=== PATIENT | female | born 2000 | race Caucasian/White ===

== ENCOUNTER 2018-04-14 04:23 | Emergency (ER) | payer MEDICAID ==
--- NOTE | 2018-04-14 04:55 | EDM.PDOC ---
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 Patient is a A1 female that recently had a 10 week spontaneous of twins. States that last evening she began to have vaginal bleeding which she describes as a "heavy period" amount of blood. She did have some associated lightheadedness and dizziness. States that this was her first . She denies any pain with the bleeding. She did see Alyse Thomas NP at [facility] and has a follow-up appointment with her on Sunday for further assessment post spontaneous . Initial examination patient is tearful and anxious. Stating that she is on a waste her time but when to make sure that she was okay because she wants to have "more babies". Review of systems: As per history of present illness and below otherwise all systems reviewed and negative. Past medical history: As per history of present illness and as reviewed below otherwise noncontributory. Surgical history: As per history of present illness and as reviewed below otherwise noncontributory. Social history: No reported history of drug or alcohol abuse. Family history: As per history of present illness and as reviewed below otherwise noncontributory. Physical exam: HEENT: Atraumatic, normocephalic, pupils reactive, negative for conjunctival pallor or scleral icterus, mucous membranes moist, throat clear, neck supple, nontender, trachea midline. Lungs: Clear to auscultation, breath sounds equal bilaterally, chest nontender. Heart: S1S2, regular, negative for clicks, rubs, or JVD. Abdomen: Soft, nondistended, nontender. Negative for masses or hepatosplenomegaly. Negative for costovertebral tenderness. Pelvis: Stable nontender. Genitourinary: Deferred. Rectal: Deferred. Extremities: Atraumatic, negative for cords or calf pain. Neurovascular unremarkable. Neuro: Awake, alert, oriented. Cranial nerves II through XII unremarkable. Cerebellum unremarkable. Motor and sensory unremarkable throughout. Exam nonfocal. Diagnostics: CBC, BMP, Rh Therapeutics: 1 L normal saline, 1 mg Ativan IV 1 Impression: Spontaneous Plan: CBC was unremarkable with normal hemoglobin levels. BMP did show some hypokalemia and patient was given Klor-Con 40 mEq by mouth. Rh was positive and hCG Quant was 2030 which was down from 7755 on 04/12/18. This was all explained to the patient and significant other. She was discharged in good condition with instructions to follow with her scheduled appointment tomorrow morning with Alyse Thomas. Also instructed them to return the emergency department if there are any new or worsening symptoms. Definitive disposition and diagnosis as appropriate pending reevaluation and review of above. abdomen Pain Score (Numeric/FACES): 10 - Related Data Allergies Allergy/AdvReac Type Severity Reaction Status Date / Time No Known Allergies Allergy Verified 04/14/18 04:35 Home Meds: Home Meds . 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 ED EXAM, GENERAL - Physical Exam Exam: See Below Course - Vital Signs Last Recorded V/S: Last Vital Signs Temp 97.8 F 04/14/18 06:41 Pulse 87 04/14/18 06:41 Resp 18 04/14/18 06:41 BP 111/62 04/14/18 06:41 Pulse Ox 98 04/14/18 06:41 - Orders/Labs/Meds Labs: Laboratory Tests 04/14/18 04/14/18 04/14/18 Range/Units 04:45 04:45 04:45 WBC 8.74 (4.0-11.0) K/uL RBC 4.41 (4.30-5.90) M/uL Hgb 13.8 (12.0-16.0) g/dL Hct 39.0 (36.0-46.0) % MCV 88.4 (80.0-98.0) fL MCH 31.3 (27.0-32.0) pg MCHC 35.4 (31.0-37.0) g/dL RDW Std Deviation 38.8 (28.0-62.0) fl RDW Coeff of Abbey 12 (11.0-15.0) % Plt Count 210 (150-400) K/uL MPV 9.40 (7.40-12.00) fL Neut % (Auto) 77.5 (48.0-80.0) % Lymph % (Auto) 14.8 L (16.0-40.0) % [place] % (Auto) 7.3 (0.0-15.0) % Eos % (Auto) 0.2 (0.0-7.0) % Baso % (Auto) 0.2 (0.0-1.5) % Neut # (Auto) 6.8 H (1.4-5.7) K/uL Lymph # (Auto) 1.3 (0.6-2.4) K/uL [place] # (Auto) 0.6 (0.0-0.8) K/uL Eos # (Auto) 0.0 (0.0-0.7) K/uL Baso # (Auto) 0.0 (0.0-0.1) K/uL Nucleated RBC % 0.0 /100WBC Nucleated RBCs # 0 K/uL Sodium 139 (136-145) mmol/L Potassium 2.9 L (3.5-5.1) mmol/L Chloride 104 (98-107) mmol/L Carbon Dioxide 23.4 (21.0-32.0) mmol/L BUN 13 (7.0-18.0) mg/dL Creatinine 0.9 (0.6-1.0) mg/dL Est Cr Clr Drug Dosing 89.72 mL/min Estimated GFR (MDRD) > 60.0 ml/min Glucose 145 H (74-106) mg/dL Calcium 8.9 (8.5-10.1) mg/dL HCG, Quant mIU/mL Blood Type B POSITIVE 04/14/18 Range/Units 04:45 WBC (4.0-11.0) K/uL RBC (4.30-5.90) M/uL Hgb (12.0-16.0) g/dL Hct (36.0-46.0) % MCV (80.0-98.0) fL MCH (27.0-32.0) pg MCHC (31.0-37.0) g/dL RDW Std Deviation (28.0-62.0) fl RDW Coeff of Abbey (11.0-15.0) % Plt Count (150-400) K/uL MPV (7.40-12.00) fL Neut % (Auto) (48.0-80.0) % Lymph % (Auto) (16.0-40.0) % [place] % (Auto) (0.0-15.0) % Eos % (Auto) (0.0-7.0) % Baso % (Auto) (0.0-1.5) % Neut # (Auto) (1.4-5.7) K/uL Lymph # (Auto) (0.6-2.4) K/uL [place] # (Auto) (0.0-0.8) K/uL Eos # (Auto) (0.0-0.7) K/uL Baso # (Auto) (0.0-0.1) K/uL Nucleated RBC % /100WBC Nucleated RBCs # K/uL Sodium (136-145) mmol/L Potassium (3.5-5.1) mmol/L Chloride (98-107) mmol/L Carbon Dioxide (21.0-32.0) mmol/L BUN (7.0-18.0) mg/dL Creatinine (0.6-1.0) mg/dL Est Cr Clr Drug Dosing mL/min Estimated GFR (MDRD) ml/min Glucose (74-106) mg/dL Calcium (8.5-10.1) mg/dL HCG, Quant 2030.0 mIU/mL Blood Type Meds: Medications Discontinued Medications Generic Name Dose Route Start Last Admin Trade Name Freq PRN Reason Stop Dose Admin Sodium Chloride 1,000 mls @ 999 mls/hr 04/14/18 05:08 04/14/18 05:47 Normal Saline IV 04/14/18 06:08 999 mls/hr STAT ONE Administration Lorazepam 1 mg 04/14/18 05:08 04/14/18 05:47 Ativan IVPUSH 04/14/18 05:09 1 mg ONETIME ONE Administration Potassium Chloride 40 meq 04/14/18 06:26 04/14/18 06:42 Klor-Con M20 PO 04/14/18 06:27 40 meq ONETIME ONE Administration Departure - Departure Time of Disposition: 07:25 Disposition: Home, Self-Care 01 Condition: Good Clinical Impression: Spontaneous - Discharge Information Referrals: PCP,None [Primary Care Provider] - Forms: ED Department Discharge Additional Instructions: My general discharge The following information is given to patients seen in the emergency department who are being discharged to home. This information is to outline your options for follow-up care. We provide all patients seen in our emergency department with a follow-up referral. The need for follow-up, as well as the timing and circumstances, are variable depending upon the specifics of your emergency department visit. If you don't have a primary care physician on staff, we will provide you with a referral. We always advise you to contact your personal physician following an emergency department visit to inform them of the circumstance of the visit and for follow-up with them and/or the need for any referrals to a consulting specialist. The emergency department will also refer you to a specialist when appropriate. This referral assures that you have the opportunity for follow-up care with a specialist. All of these measure are taken in an effort to provide you with optimal care, which includes your follow-up. Under all circumstances we always encourage you to contact your private physician who remains a resource for coordinating your care. When calling for follow-up care, please make the office aware that this follow-up is from your recent emergency room visit. If for any reason you are refused follow-up, please contact the [facility] Emergency Department at and asked to speak to the emergency department charge nurse. [facility] [address] [place] [id number] Please follow-up with Alyse Thomas as scheduled Sunday morning. Return to emergency department if any new or worsening symptoms.
[2018-04-14] MEDS ORDERED: Sodium Chloride 0.9% 1,000 ML IV ONE (05:08)
[2018-04-14] MEDS ORDERED: LORazepam 2 MG/ML SDV IVPUSH ONE (05:08)
[2018-04-14 06:16] LABS: CHLORIDE,CL 104 mmol/L (98-107); SODIUM,NA 139 mmol/L (136-145)
[2018-04-14] MEDS ORDERED: Potassium Chloride 20 MEQ Tab.ER PO ONE (06:26)
== END 2018-04-14 08:00 | disposition home or self-care (01) ==
LOC: MW.ED 04:23
DX: O03.9 Complete or unspecified spontaneous abortion without complication (principal)
CPT/HCPCS: 80048; 84702; 85025; 86900; 86901; 96361; 96374; 99284; A9270; J2060; J7040; 99283

== ENCOUNTER 2020-06-09 08:41 | Inpatient (IN) | payer BC ==
[2020-06-09] MEDS ORDERED: Carboprost Tromethamine 250 MCG/1 ML Amp IM PRN (11:16)
[2020-06-09] MEDS ORDERED: Misoprostol 200 MCG Tab PO PRN (11:16)
[2020-06-09] MEDS ORDERED: Lidocaine 1% 50 ML MDV INJECT PRN (11:16)
[2020-06-09] MEDS ORDERED: Methylergonovine 0.2 MG/1 ML Amp IM PRN (11:16)
[2020-06-09] MEDS ORDERED: Nalbuphine 10 MG/1 ML Vial IVPUSH PRN (11:16)
[2020-06-09] MEDS ORDERED: Water For Irrigation,Sterile 1,000 ML Container IRR PRN (11:16)
[2020-06-09] MEDS ORDERED: Butorphanol 1 MG/ML SDV IVPUSH PRN (11:16)
[2020-06-09] MEDS ORDERED: Sodium Chloride 0.9% 10 ML Syringe FLUSH PRN (11:16)
[2020-06-09] MEDS ORDERED: Tranexamic Acid 1,000 MG in Sodium Chloride 0.9% 100 ML IV PRN (11:16)
[2020-06-09] MEDS ORDERED: Sodium Chloride 0.9% 2.5 ML Syringe FLUSH PRN (11:16)
[2020-06-09] MEDS ORDERED: Sodium Chloride 0.9% 10 ML SDV IV PRN (11:16)
[2020-06-09] MEDS ORDERED: Lactated Ringers 1,000 ML IV SCH (11:30)
[2020-06-09] MEDS ORDERED: Oxytocin/0.9 % Sodium Chloride 30 UNIT/500 ML BAG IV SCH (11:30)
--- NOTE | 2020-06-09 13:37 | PCM.LDHP ---
L&D History of Present Illness - General Date of Service: 06/09/20 Admit Problem/Dx: Patient Status Order with Admit Dx/Problem 06/09/20 09:06 Patient Status [ADT] Routine 06/09/20 11:17 Patient Status [ADT] Routine Admission Diagnosis/Problem Admission Diagnosis/Problem 06/09/20 13:09 Ryan is a 20 yo at 40.2 weeks gestation (KEILA 06[birth year]07/2020) that presents today with C/O moderate contractions every 5-7 min lasting ~1 min since 0030 AM today. B pos, RNI, GBS neg. symptomatic COVID pos 1 day ago, patient tested for COVID in clinic yesterday, results pending. Not advised to utilize rapid test, patient placed on COVID precautions until test results are returned due to close exposure with sympomatic COVID pos case (). Denies LOF, vaginal bleeding; reports adequate movement. Patient has no complaints or concerns at this time, well-appearing, no symptoms. Source of Information: Patient History Limitations: Reports: No Limitations - Related Data Allergies/Adverse Reactions: Allergies Allergy/AdvReac Type Severity Reaction Status Date / Time No Known Allergies Allergy Verified 06/09/20 09:05 Home Medications: Home Meds Pnv,Calcium 72/Iron/Folic Acid [Pnv Plus Multivit Tab] 1 each PO 06/09/20 [History] Past Medical History - Past Health History Medical/Surgical History: Denies Medical/Surgical History HEENT History: Reports: None Cardiovascular History: Reports: None Respiratory History: Reports: None Gastrointestinal History: Reports: None Genitourinary History: Reports: None 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: , Spontaneous (Twins (2018)) : 2 Para: 0 LMP (Approximate): Musculoskeletal History: Reports: None Neurological History: Reports: None Psychiatric History: Reports: None Endocrine/Metabolic History: Reports: None Hematologic History: Reports: None Immunologic History: Reports: None Oncologic (Cancer) History: Reports: None Dermatologic History: Reports: None - Infectious Disease History Infectious Disease History: Reports: None Social & Family History - Family History Family Medical History: Noncontributory - Tobacco Use Smoking Status *Q: Never Smoker - Caffeine Use Caffeine Use: Reports: None - Alcohol Use Alcohol Use History: No - Recreational Drug Use Recreational Drug Use: No - Sexual History Sexual History: Reports: None H&P Review of Systems - Review of Systems: Review Of Systems: Comprehensive ROS is negative, except as noted in HPI. General: Reports: No Symptoms HEENT: Reports: No Symptoms Pulmonary: Reports: No Symptoms Cardiovascular: Reports: No Symptoms Gastrointestinal: Reports: No Symptoms Genitourinary: Reports: No Symptoms Musculoskeletal: Reports: No Symptoms Skin: Reports: No Symptoms Psychiatric: Reports: No Symptoms Neurological: Reports: No Symptoms Hematologic/Lymphatic: Reports: No Symptoms Immunologic: Reports: No Symptoms L&D Exam - Exam Exam: Not Obtained - Vital Signs Vital Signs: Hemodynamically stable, afebrile. Weight: 178 lb - OB Specific Fundal Height In cm: 40 Contraction Duration (sec): 2-6 Contraction Frequency (min): 60-80 Contraction Intensity: Moderate Movement: Active Heart Tones: Present Heart Tones per Min: 140 Heart Rate (FHR) Variability: Moderate (6-25 bmp) Presentation: Vertex - Exam General: Alert, Oriented, Cooperative HEENT: Conjunctiva Clear, Hearing Intact, Mucosa Moist & [place], PERRLA Neck: Supple, Trachea Midline Lungs: Clear to Auscultation, Normal Respiratory Effort Cardiovascular: Regular Rate, Regular Rhythm GI/Abdominal Exam: Normal Bowel Sounds, Soft, Non-Tender, No Organomegaly, No Distention Rectal Exam: Deferred Genitourinary: Normal external exam, Normal bimanual exam, Enlarged uterus (Gravid uterus) Back Exam: Normal Inspection, Full Range of Motion Extremities: Normal Inspection, Normal Range of Motion, Non-Tender, No Pedal Edema, Normal Capillary Refill Skin: Warm, Dry, Intact Neurological: Cranial Nerves Intact, Reflexes Equal Bilateral Psychiatric: Alert, Normal Affect, Normal Mood - Patient Data Lab Results Last 24 hrs: Laboratory Results - last 24 hr 06/09/20 Range/Units 11:30 WBC 12.27 H (4.0-11.0) K/uL RBC 4.53 (4.30-5.90) M/uL Hgb 14.2 (12.0-16.0) g/dL Hct 41.6 (36.0-46.0) % MCV 91.8 (80.0-98.0) fL MCH 31.3 (27.0-32.0) pg MCHC 34.1 (31.0-37.0) g/dL RDW Std Deviation 42.0 (28.0-62.0) fl RDW Coeff of Abbey 13 (11.0-15.0) % Plt Count 217 (150-400) K/uL MPV 10.10 (7.40-12.00) fL Nucleated RBC % 0.0 /100WBC Nucleated RBCs # 0 K/uL Result Diagrams: 06/09/20 11:30 - Problem List (1) Uterine contractions SNOMED Code(s): 632011945 ICD Code: BWS0580 - Status: Acute Priority: High Current Visit: Yes (2) 40 weeks gestation of SNOMED Code(s): 34025841 ICD Code: Z3A.40 - 40 WEEKS GESTATION OF Status: Acute Priority: High Current Visit: Yes Problem List Initiated/Reviewed/Updated: Yes Orders Last 24hrs: Active Orders 24 hr Category Date Time Status Patient Status [ADT] Routine ADT 06/09/20 11:17 Active Heart Tones [RC] CONTINUOUS Care 06/09/20 11:17 Active Non Stress Test [RC] PER UNIT ROUTINE Care 06/09/20 09:06 Active Non Stress Test [RC] PER UNIT ROUTINE Care 06/09/20 11:17 Active May Shower [RC] ASDIRECTED Care 06/09/20 11:17 Active Notify Provider [RC] PRN Care 06/09/20 11:17 Active Up ad Jennifer [RC] ASDIRECTED Care 06/09/20 09:06 Active Up ad Jennifer [RC] ASDIRECTED Care 06/09/20 11:17 Active Vaginal Exam [RC] Click to Edit Care 06/09/20 09:06 Active Vaginal Exam [RC] PRN Care 06/09/20 11:17 Active Vital Signs [RC] PER UNIT ROUTINE Care 06/09/20 09:06 Active Vital Signs [RC] PER UNIT ROUTINE Care 06/09/20 11:17 Active CORONAVIRUS COVID-19 PCR [facility] Urgent Lab 06/09/20 11:17 Ordered RPR (SYPHILIS SERO) W/ RFLX [REF] Routine Lab 06/09/20 11:30 Received TYPE AND SCREEN [BBK] Routine Lab 06/09/20 11:30 Received Butorphanol [Stadol] Med 06/09/20 11:16 Active 1 mg IVPUSH Q1H PRN Carboprost Tromethamine [Hemabate DS] Med 06/09/20 11:16 Active 250 mcg IM ASDIRECTED PRN Lactated Ringers [Ringers, Lactated] 1,000 ml Med 06/09/20 11:30 Active IV ASDIRECTED Lidocaine 1% [Xylocaine 1%] Med 06/09/20 11:16 Active 50 ml INJECT ONETIME PRN Methylergonovine [Methergine] Med 06/09/20 11:16 Active 0.2 mg IM ASDIRECTED PRN Nalbuphine [Nubain] Med 06/09/20 11:16 Active 10 mg IVPUSH Q1H PRN Oxytocin/0.9 % Sodium Chloride [Oxytocin 30 Unit/500 ML Med 06/09/20 11:30 Active -NS] 30 unit in 500 ml IV TITRATE Sodium Chloride 0.9% [Normal Saline] Med 06/09/20 11:16 Active 10 ml IV ASDIRECTED PRN Sodium Chloride 0.9% [Saline Flush] Med 06/09/20 11:16 Active 10 ml FLUSH ASDIRECTED PRN Sodium Chloride 0.9% [Saline Flush] Med 06/09/20 11:16 Active 2.5 ml FLUSH ASDIRECTED PRN Tranexamic Acid [Cyklokapron] 1,000 mg Med 06/09/20 11:16 Active Sodium Chloride 0.9% [Normal Saline] 100 ml IV ONETIME Water For Irrigation,Sterile [Sterile Water for Med 06/09/20 11:16 Active Irrigation] 1,000 ml IRR ASDIRECTED PRN miSOPROStoL [Cytotec] Med 06/09/20 11:16 Active 200 mcg PO ONETIME PRN Scalp Electrode [WOMSER] Per Unit Routine Oth 06/09/20 11:17 Ordered Peripheral IV Insertion Adult [OM.PC] Routine Oth 06/09/20 11:17 Ordered Resuscitation Status Routine Resus Stat 06/09/20 09:06 Ordered Medication Orders Butorphanol Tartrate (Stadol) 1 mg IVPUSH Q1H PRN PRN Reason: Pain Carboprost Tromethamine (Hemabate Ds) 250 mcg IM ASDIRECTED PRN PRN Reason: Post Hemorrhage Lactated Ringer's (Ringers, Lactated) 1,000 mls @ 150 mls/hr IV ASDIRECTED CLARE Oxytocin/Sodium Chloride (Oxytocin 30 Unit/500 Ml-Ns) 30 unit in 500 mls @ 999 mls/hr IV TITRATE CLARE Tranexamic Acid 1,000 mg/ (Sodium Chloride) 110 mls @ 660 mls/hr IV ONETIME PRN PRN Reason: Bleeding Lidocaine HCl (Xylocaine 1%) 50 ml INJECT ONETIME PRN PRN Reason: Laceration repair Methylergonovine Maleate (Methergine) 0.2 mg IM ASDIRECTED PRN PRN Reason: Post Hemorrhage Misoprostol (Cytotec) 200 mcg PO ONETIME PRN PRN Reason: Post Hemorrhage Nalbuphine HCl (Nubain) 10 mg IVPUSH Q1H PRN PRN Reason: Pain (severe 7-10) Sodium Chloride (Saline Flush) 10 ml FLUSH ASDIRECTED PRN PRN Reason: Keep Vein Open Sodium Chloride (Saline Flush) 2.5 ml FLUSH ASDIRECTED PRN PRN Reason: Keep Vein Open Sodium Chloride (Normal Saline) 10 ml IV ASDIRECTED PRN PRN Reason: IV Use Sterile Water (Sterile Water For Irrigation) 1,000 ml IRR ASDIRECTED PRN PRN Reason: delivery Assessment/Plan Comment:: Admit to L&D for observation in anticipation of to term, viable . COVID testing completed 1 day ago, pending. May receive epidural if desired between 5-6 cm. Declines AROM at this time. See new orders. Dr. De La Paz notified and agreeable with POC.
[2020-06-09] MEDS ORDERED: Lidocaine 1% 50 ML MDV ONE (22:37)
[2020-06-09] MEDS ORDERED: oxyCODONE 5 MG Tab PO PRN (22:54)
[2020-06-09] MEDS ORDERED: Bisacodyl 10 MG Supp RECTAL PRN (22:54)
[2020-06-09] MEDS ORDERED: Measles, Mumps & Rubella Vaccine 0.5 ML SDV SUBCUT ONE (22:54)
[2020-06-09] MEDS ORDERED: Ibuprofen 400 MG Tab PO PRN (22:54)
[2020-06-09] MEDS ORDERED: Acetaminophen 500 MG Tab PO PRN ×2 (22:54)
[2020-06-09] MEDS ORDERED: Lanolin 100% Cream 7 GM Tube TOP PRN (22:54)
[2020-06-09] MEDS ORDERED: Docusate Sodium 100 MG Cap PO PRN (22:54)
[2020-06-09] MEDS ORDERED: Benzocaine/Menthol 20%-0.5% Spray 78 GM Cannister TOP PRN (22:54)
--- NOTE | 2020-06-09 23:04 | PCM.DEL ---
L & D Note - General Info Date of Service: 06/09/20 Mother's Due Date: 06/07/20 - Delivery Note Labor: Spontaneous, Augmented by ARM Delivery Outcome: Livebirth Delivery Method: Spontaneous Vaginal Delivery-Single Infant Delivery Mode: Spontaneous Presentation: Vertex Nuchal Cord: None Anesthesia Type: None Episiotomy Type: None Laceration: Periurethral (Bilateral periurethral skin tears, scant oozing, not repaired.) Placenta: Intact, Spontaneous Cord: 3 Vessels Estimated Blood Loss: 400 Resuscitation Needed: No : Stimulated, Warmed, [place] Used Score 1 min: 8 Score 5 min: 9 Second Stage Interventions: Reports: Encouragement Given, Pushing, Reverse Squat, Pushing Effectively, Pushing, Squat Bar Pulling on Device Delivery Comments (Free Text/Narrative):: Ryan is a 20 yo S/P to term viable NBF with spontaneous cries with warm, dry, stimulation. FOB COVID pos, maternal COVID testing completed 1 day ago and pending. FOB present on video chat. Patient wearing facial mask silvia ropriately during labor and immediately follow . NBF delivered GEETHA with body following, placed to maternal abdomen. Umbilical cord left intact until placenta delivered, <10 min S/P NBF. Umbilical cord clamped x 2, cut by CNM. Bilateral periurethral skin tears noted, scant oozing, not repaired. Uterus firm U-1. Scant rubra lochia. Mother and resting comfortably skin to skin. - General Info Date of Service: 06/09/20 Admission Dx/Problem (Free Text): Patient Status Order with Admit Dx/Problem 06/09/20 09:06 Patient Status [ADT] Routine 06/09/20 11:17 Patient Status [ADT] Routine Admission Diagnosis/Problem Admission Diagnosis/Problem 06/09/20 13:09 Ryan is a 20 yo at 40.2 weeks gestation (KEILA 06/07/2020) that presents today with C/O moderate contractions every 5-7 min lasting ~1 min since 0030 AM today. B pos, RNI, GBS neg. symptomatic COVID pos 1 day ago, patient tested for COVID in clinic yesterday, results pending. Not advised to utilize rapid test, patient placed on COVID precautions until test results are returned due to close exposure with sympomatic COVID pos case (). Denies LOF, vaginal bleeding; reports adequate movement. Patient has no complaints or concerns at this time, well-appearing, no symptoms. Functional Status: Reports: Pain Controlled - Review of Systems General: Reports: No Symptoms HEENT: Reports: No Symptoms Pulmonary: Reports: No Symptoms Cardiovascular: Reports: No Symptoms Gastrointestinal: Reports: No Symptoms Genitourinary: Reports: No Symptoms Musculoskeletal: Reports: No Symptoms Skin: Reports: No Symptoms Neurological: Reports: No Symptoms Psychiatric: Reports: No Symptoms - Patient Data Vitals - Most Recent: Hemodynamically stable, afebrile, asymptomatic. Weight - Most Recent: 178 lb Lab Results Last 24 Hours: Laboratory Results - last 24 hr 06/09/20 06/09/20 Range/Units 11:30 11:30 WBC 12.27 H (4.0-11.0) K/uL RBC 4.53 (4.30-5.90) M/uL Hgb 14.2 (12.0-16.0) g/dL Hct 41.6 (36.0-46.0) % MCV 91.8 (80.0-98.0) fL MCH 31.3 (27.0-32.0) pg MCHC 34.1 (31.0-37.0) g/dL RDW Std Deviation 42.0 (28.0-62.0) fl RDW Coeff of Abbey 13 (11.0-15.0) % Plt Count 217 (150-400) K/uL MPV 10.10 (7.40-12.00) fL Nucleated RBC % 0.0 /100WBC Nucleated RBCs # 0 K/uL Blood Type B POSITIVE Antibody Screen NEGATIVE Med Orders - Current: Current Medications Discontinued Medications Butorphanol Tartrate (Stadol) 1 mg IVPUSH Q1H PRN PRN Reason: Pain Last Admin: 06/09/20 20:30 Dose: 1 mg Documented by: Carboprost Tromethamine (Hemabate Ds) 250 mcg IM ASDIRECTED PRN PRN Reason: Post Hemorrhage Lactated Ringer's (Ringers, Lactated) 1,000 mls @ 150 mls/hr IV ASDIRECTED [facility] Oxytocin/Sodium Chloride (Oxytocin 30 Unit/500 Ml-Ns) 30 unit in 500 mls @ 999 mls/hr IV TITRATE [facility] Tranexamic Acid 1,000 mg/ (Sodium Chloride) 110 mls @ 660 mls/hr IV ONETIME PRN PRN Reason: Bleeding Lidocaine HCl (Xylocaine 1%) 50 ml INJECT ONETIME PRN PRN Reason: Laceration repair Lidocaine HCl (Xylocaine 1%) Confirm Administered Dose 50 ml .ROUTE .STK-MED ONE Stop: 06/09/20 22:38 Methylergonovine Maleate (Methergine) 0.2 mg IM ASDIRECTED PRN PRN Reason: Post Hemorrhage Misoprostol (Cytotec) 200 mcg PO ONETIME PRN PRN Reason: Post Hemorrhage Nalbuphine HCl (Nubain) 10 mg IVPUSH Q1H PRN PRN Reason: Pain (severe 7-10) Sodium Chloride (Saline Flush) 10 ml FLUSH ASDIRECTED PRN PRN Reason: Keep Vein Open Sodium Chloride (Saline Flush) 2.5 ml FLUSH ASDIRECTED PRN PRN Reason: Keep Vein Open Sodium Chloride (Normal Saline) 10 ml IV ASDIRECTED PRN PRN Reason: IV Use Sterile Water (Sterile Water For Irrigation) 1,000 ml IRR ASDIRECTED PRN PRN Reason: delivery - Exam General: Alert, Oriented, Cooperative, No Acute Distress HEENT: Pupils Equal, Pupils Reactive, Mucous Membr. Moist/[place] Neck: Supple Lungs: Clear to Auscultation, Normal Respiratory Effort Cardiovascular: Regular Rate, Regular Rhythm GI/Abdominal Exam: Normal Bowel Sounds, Soft, Non-Tender, No Organomegaly, No Distention (Female) Exam: Normal External Exam, Enlarged Uterus ( uterus, firm U-1), Vaginal Bleeding (Scant to small rubra lochia) Back Exam: Normal Inspection, Full Range of Motion Extremities: Normal Inspection, Normal Range of Motion, Non-Tender, No Pedal Edema, Normal Capillary Refill Skin: Warm, Dry, Intact Wound/Incisions: No Drainage (Vulva edematous. Bilateral periurethral skin tears hemostatic with pressure shortly after .) Neurological: No New Focal Deficit Psy/Mental Status: Alert, Normal Affect, Normal Mood - Problem List & Annotations (1) (spontaneous vaginal delivery) SNOMED Code(s): 257540767 Code(s): O80 - ENCOUNTER FOR FULL-TERM UNCOMPLICATED DELIVERY Status: Acute Priority: High Current Visit: Yes (2) Lactating mother SNOMED Code(s): 141498011, 990878411 Code(s): Z39.1 - ENCOUNTER FOR CARE AND EXAMINATION OF LACTATING MOTHER Status: Acute Priority: High Current Visit: Yes - Problem List Review Problem List Initiated/Reviewed/Updated: Yes - My Orders Last 24 Hours: My Active Orders 06/09/20 11:30 RPR (SYPHILIS SERO) W/ RFLX [REF] Routine 06/09/20 Dinner Regular Diet [DIET] 06/09/20 22:54 Patient Status [ADT] Routine January Shower [RC] ASDIRECTED Up ad Jennifer [RC] ASDIRECTED Vital Signs [RC] PER UNIT ROUTINE Acetaminophen [Tylenol Extra Strength] 1,000 mg PO Q4H PRN Acetaminophen [Tylenol Extra Strength] 500 mg PO Q4H PRN Benzocaine/Menthol [Dermoplast Pain Relief 20%-0.5% [place]] 78 gm TOP ASDIRECTED PRN Docusate Sodium [Colace] 100 mg PO BID PRN Ibuprofen [Motrin] 400 mg PO Q4H PRN Ibuprofen [Motrin] 800 mg PO Q6H PRN Lanolin [Lansinoh HPA] See Dose Instructions TOP ASDIRECTED PRN Measles, Mumps & Rubella [M-M-R II Vaccine] 0.5 ml SUBCUT .ONCE ONE bisacodyL [Dulcolax] 10 mg RECTAL ONETIME PRN oxyCODONE 5 mg PO Q2H PRN witch [place] [Tucks] 1 pad TOP ASDIRECTED PRN Assess Lochia [WOMSER] Per Unit Routine Assess Uterine Involution [WOMSER] Per Unit Routine Peripheral IV Discontinue [OM.PC] Routine Resuscitation Status Routine 06/09/20 22:55 Cooling Warming Measures [RC] ASDIRECTED Ice Therapy [OM.PC] Per Unit Routine Perineal Care [OM.PC] Per Unit Routine Sitz Bath [OM.PC] Per Unit Routine 06/10/20 05:11 HEMOGLOBIN/HEMATOCRIT,HH [HEME] Timed - Plan Plan:: Admit to inpatient until S/P to term, viable NBF. COVID testing completed 1 day ago, pending; plan to room in with NBF with in-room precautions to include maternal facial mask at all times, frequent handwashing immediately prior to and after handling , and distancing in the room when not performing direct care. 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 See new orders. Dr. De La Paz notified and agreeable with POC.
[2020-06-10] MEDS: Ibuprofen 800 MG Tab PO PRN ×3 (00:12→23:12)
[2020-06-10] MEDS: Witch Hazel Medicated Pads 40/Jar TOP PRN (00:13)
--- NOTE | 2020-06-10 08:43 | PCM.PNPP ---
- General Info Date of Service: 06/10/20 Admission Dx/Problem (Free Text): Patient Status Order with Admit Dx/Problem 06/09/20 09:06 Patient Status [ADT] Routine 06/09/20 11:17 Patient Status [ADT] Routine Admission Diagnosis/Problem Admission Diagnosis/Problem 06/09/20 13:09 Ryan is a 20 yo at 40.2 weeks gestation (KEILA 06/07/2020) that presents today with C/O moderate contractions every 5-7 min lasting ~1 min since 0030 AM today. B pos, RNI, GBS neg. symptomatic COVID pos 1 day ago, patient tested for COVID in clinic yesterday, results pending. Not advised to utilize rapid test, patient placed on COVID precautions until test results are returned due to close exposure with sympomatic COVID pos case (). Denies LOF, vaginal bleeding; reports adequate movement. Patient has no complaints or concerns at this time, well-appearing, no symptoms. Functional Status: Reports: Pain Controlled, Tolerating Diet, Ambulating, Urinating - Review of Systems General: Reports: No Symptoms HEENT: Reports: No Symptoms Pulmonary: Reports: No Symptoms Cardiovascular: Reports: No Symptoms Gastrointestinal: Reports: No Symptoms Genitourinary: Reports: No Symptoms Musculoskeletal: Reports: No Symptoms Skin: Reports: No Symptoms Neurological: Reports: No Symptoms Psychiatric: Reports: No Symptoms - General Info Date of Service: 06/10/20 - Patient Data Vital Signs - Most Recent: Last Vital Signs Temp 98.3 F 06/10/20 06:00 Pulse 80 06/10/20 06:00 Resp 16 06/10/20 06:00 BP 132/64 06/10/20 06:00 Pulse Ox 97 06/10/20 06:00 Weight - Most Recent: 178 lb Lab Results - Last 24 Hours: Laboratory Results - last 24 hr 06/09/20 06/09/20 06/10/20 Range/Units 11:30 11:30 06:41 WBC 12.27 H (4.0-11.0) K/uL RBC 4.53 (4.30-5.90) M/uL Hgb 14.2 12.5 (12.0-16.0) g/dL Hct 41.6 36.7 (36.0-46.0) % MCV 91.8 (80.0-98.0) fL MCH 31.3 (27.0-32.0) pg MCHC 34.1 (31.0-37.0) g/dL RDW Std Deviation 42.0 (28.0-62.0) fl RDW Coeff of [place] 13 (11.0-15.0) % Plt Count 217 (150-400) K/uL MPV 10.10 (7.40-12.00) fL Nucleated RBC % 0.0 /100WBC Nucleated RBCs # 0 K/uL Blood Type B POSITIVE Antibody Screen NEGATIVE Med Orders - Current: Current Medications Acetaminophen (Tylenol Extra Strength) 500 mg PO Q4H PRN PRN Reason: Pain Acetaminophen (Tylenol Extra Strength) 1,000 mg PO Q4H PRN PRN Reason: Pain Benzocaine/Menthol (Dermoplast Pain Relief 20%-0.5% [place]) 78 gm TOP ASDIRECTED PRN PRN Reason: Perineal Comfort Measure Last Admin: 06/10/20 00:13 Dose: 1 canister Documented by: Bisacodyl (Dulcolax) 10 mg RECTAL ONETIME PRN PRN Reason: Constipation Docusate Sodium (Colace) 100 mg PO BID PRN PRN Reason: Constipation Emollient Ointment (Lansinoh Hpa) 0 gm TOP ASDIRECTED PRN PRN Reason: Sore Nipples Ibuprofen (Motrin) 400 mg PO Q4H PRN PRN Reason: Pain Ibuprofen (Motrin) 800 mg PO Q6H PRN PRN Reason: Pain Last Admin: 06/10/20 00:12 Dose: 800 mg Documented by: Oxycodone HCl (Oxycodone) 5 mg PO Q2H PRN PRN Reason: Pain Witch Marlena (Tucks) 1 pad TOP ASDIRECTED PRN PRN Reason: comfort care Last Admin: 06/10/20 00:13 Dose: 1 container Documented by: Discontinued Medications Butorphanol Tartrate (Stadol) 1 mg IVPUSH Q1H PRN PRN Reason: Pain Last Admin: 06/09/20 20:30 Dose: 1 mg Documented by: Carboprost Tromethamine (Hemabate Ds) 250 mcg IM ASDIRECTED PRN PRN Reason: Post Hemorrhage Lactated Ringer's (Ringers, Lactated) 1,000 mls @ 150 mls/hr IV ASDIRECTED [facility] Oxytocin/Sodium Chloride (Oxytocin 30 Unit/500 Ml-Ns) 30 unit in 500 mls @ 999 mls/hr IV TITRATE [facility] Last Admin: 06/09/20 22:32 Dose: 500 mls/hr Documented by: Tranexamic Acid 1,000 mg/ (Sodium Chloride) 110 mls @ 660 mls/hr IV ONETIME PRN PRN Reason: Bleeding Lidocaine HCl (Xylocaine 1%) 50 ml INJECT ONETIME PRN PRN Reason: Laceration repair Lidocaine HCl (Xylocaine 1%) Confirm Administered Dose 50 ml .ROUTE .STK-MED ONE Stop: 06/09/20 22:38 Measles/Mumps/Rubella Vaccine Live (M-M-R Ii Vaccine) 0.5 ml SUBCUT .ONCE ONE Stop: 06/09/20 22:55 Methylergonovine Maleate (Methergine) 0.2 mg IM ASDIRECTED PRN PRN Reason: Post Hemorrhage Misoprostol (Cytotec) 200 mcg PO ONETIME PRN PRN Reason: Post Hemorrhage Nalbuphine HCl (Nubain) 10 mg IVPUSH Q1H PRN PRN Reason: Pain (severe 7-10) Sodium Chloride (Saline Flush) 10 ml FLUSH ASDIRECTED PRN PRN Reason: Keep Vein Open Sodium Chloride (Saline Flush) 2.5 ml FLUSH ASDIRECTED PRN PRN Reason: Keep Vein Open Sodium Chloride (Normal Saline) 10 ml IV ASDIRECTED PRN PRN Reason: IV Use Sterile Water (Sterile Water For Irrigation) 1,000 ml IRR ASDIRECTED PRN PRN Reason: delivery - Infant Interaction Disposition, : [place] in Room with Family Interaction: Holding Infant Infant Feeding: Breastfed Infant; Nursed Well, Continues to Breastfeed Support Person: Other (see below) - Recovery Exam Fundal Tone: Firm Fundal Level: At Umbilicus Fundal Placement: Midline Lochia Amount: Small Lochia Color: Rubra/Red Perineum Description: Intact, Minimal Bruising/Swelling Bladder Status: Voiding - Exam General: Alert, Oriented, Cooperative, No Acute Distress Lungs: Normal Respiratory Effort Cardiovascular: Regular Rate, Regular Rhythm GI/Abdominal Exam: Soft, Non-Tender Extremities: Normal Inspection, Normal Range of Motion, Non-Tender, Normal Capillary Refill Skin: Warm, Dry, Intact Neurological: No New Focal Deficit, Normal Speech, Normal Tone, Strength Equal Bilateral, Sensation Intact Psy/Mental Status: Alert, Normal Affect, Normal Mood - Problem List & Annotations (1) (spontaneous vaginal delivery) SNOMED Code(s): 826351449 Code(s): O80 - ENCOUNTER FOR FULL-TERM UNCOMPLICATED DELIVERY Status: Acute Priority: High Current Visit: Yes - Problem List Review Problem List Initiated/Reviewed/Updated: Yes - Plan Plan:: Admit to inpatient until S/P to term, viable NBF. COVID testing completed 1 day ago, pending; plan to room in with NBF with in-room precautions to include maternal facial mask at all times, frequent handwashing immediately prior to and after handling , and distancing in the room when not performing direct care. 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 See new orders. Dr. De La Paz notified and agreeable with POC. PP Day 1 A: well and bonding well with baby; ambulating, urinating, and tolerating diet well. NO concerns/questions at this time. P: Routine plan of care; anticipate discharge tomorrow (06/11) morning; Dr. De La Paz updated.
--- NOTE | 2020-06-11 07:48 | PCM.PNPP ---
- General Info Date of Service: 06/11/20 Admission Dx/Problem (Free Text): Patient Status Order with Admit Dx/Problem 06/09/20 09:06 Patient Status [ADT] Routine 06/09/20 11:17 Patient Status [ADT] Routine Admission Diagnosis/Problem Admission Diagnosis/Problem 06/09/20 13:09 Ryan is a 20 yo at 40.2 weeks gestation (KEILA 06/07/2020) that presents today with C/O moderate contractions every 5-7 min lasting ~1 min since 0030 AM today. B pos, RNI, GBS neg. symptomatic COVID pos 1 day ago, patient tested for COVID in clinic yesterday, results pending. Not advised to utilize rapid test, patient placed on COVID precautions until test results are returned due to close exposure with sympomatic COVID pos case (). Denies LOF, vaginal bleeding; reports adequate movement. Patient has no complaints or concerns at this time, well-appearing, no symptoms. Functional Status: Reports: Pain Controlled, Tolerating Diet, Ambulating, Urinating - Review of Systems General: Reports: No Symptoms HEENT: Reports: No Symptoms Pulmonary: Reports: No Symptoms Cardiovascular: Reports: No Symptoms Gastrointestinal: Reports: No Symptoms Genitourinary: Reports: No Symptoms Musculoskeletal: Reports: No Symptoms Skin: Reports: No Symptoms Neurological: Reports: No Symptoms Psychiatric: Reports: No Symptoms - General Info Date of Service: 06/11/20 - Patient Data Vital Signs - Most Recent: Last Vital Signs Temp 97.3 F 06/11/20 04:30 Pulse 64 06/11/20 04:30 Resp 16 06/11/20 04:30 BP 105/62 06/11/20 04:30 Pulse Ox 97 06/11/20 04:30 Weight - Most Recent: 178 lb Med Orders - Current: Current Medications Acetaminophen (Tylenol Extra Strength) 500 mg PO Q4H PRN PRN Reason: Pain Acetaminophen (Tylenol Extra Strength) 1,000 mg PO Q4H PRN PRN Reason: Pain Benzocaine/Menthol (Dermoplast Pain Relief 20%-0.5% [place]) 78 gm TOP ASDIRECTED PRN PRN Reason: Perineal Comfort Measure Last Admin: 06/10/20 00:13 Dose: 1 canister Documented by: Bisacodyl (Dulcolax) 10 mg RECTAL ONETIME PRN PRN Reason: Constipation Docusate Sodium (Colace) 100 mg PO BID PRN PRN Reason: Constipation Emollient Ointment (Lansinoh Hpa) 0 gm TOP ASDIRECTED PRN PRN Reason: Sore Nipples Last Admin: 06/10/20 10:47 Dose: 1 gram Documented by: Ibuprofen (Motrin) 400 mg PO Q4H PRN PRN Reason: Pain Ibuprofen (Motrin) 800 mg PO Q6H PRN PRN Reason: Pain Last Admin: 06/10/20 23:12 Dose: 800 mg Documented by: Oxycodone HCl (Oxycodone) 5 mg PO Q2H PRN PRN Reason: Pain Witch Marlena (Tucks) 1 pad TOP ASDIRECTED PRN PRN Reason: comfort care Last Admin: 06/10/20 00:13 Dose: 1 container Documented by: Discontinued Medications Butorphanol Tartrate (Stadol) 1 mg IVPUSH Q1H PRN PRN Reason: Pain Last Admin: 06/09/20 20:30 Dose: 1 mg Documented by: Carboprost Tromethamine (Hemabate Ds) 250 mcg IM ASDIRECTED PRN PRN Reason: Post Hemorrhage Lactated Ringer's (Ringers, Lactated) 1,000 mls @ 150 mls/hr IV ASDIRECTED [facility] Oxytocin/Sodium Chloride (Oxytocin 30 Unit/500 Ml-Ns) 30 unit in 500 mls @ 999 mls/hr IV TITRATE [facility] Last Admin: 06/09/20 22:32 Dose: 500 mls/hr Documented by: Tranexamic Acid 1,000 mg/ (Sodium Chloride) 110 mls @ 660 mls/hr IV ONETIME PRN PRN Reason: Bleeding Lidocaine HCl (Xylocaine 1%) 50 ml INJECT ONETIME PRN PRN Reason: Laceration repair Lidocaine HCl (Xylocaine 1%) Confirm Administered Dose 50 ml .ROUTE .STK-MED ONE Stop: 06/09/20 22:38 Measles/Mumps/Rubella Vaccine Live (M-M-R Ii Vaccine) 0.5 ml SUBCUT .ONCE ONE Stop: 06/09/20 22:55 Methylergonovine Maleate (Methergine) 0.2 mg IM ASDIRECTED PRN PRN Reason: Post Hemorrhage Misoprostol (Cytotec) 200 mcg PO ONETIME PRN PRN Reason: Post Hemorrhage Nalbuphine HCl (Nubain) 10 mg IVPUSH Q1H PRN PRN Reason: Pain (severe 7-10) Sodium Chloride (Saline Flush) 10 ml FLUSH ASDIRECTED PRN PRN Reason: Keep Vein Open Sodium Chloride (Saline Flush) 2.5 ml FLUSH ASDIRECTED PRN PRN Reason: Keep Vein Open Sodium Chloride (Normal Saline) 10 ml IV ASDIRECTED PRN PRN Reason: IV Use Sterile Water (Sterile Water For Irrigation) 1,000 ml IRR ASDIRECTED PRN PRN Reason: delivery - Infant Interaction Infant Disposition, : [place] in Room with Family Interaction: Holding Infant Infant Feeding: Breastfed Infant; Nursed Well, Continues to Breastfeed Support Person: Other (see below) - Recovery Exam Fundal Tone: Firm Fundal Level: 1 Fingerbreadths Below Umbilicus Fundal Placement: Midline Lochia Amount: Scant Lochia Color: Rubra/Red Perineum Description: Other (see below) Other Perinuem Description: perineal skid trejo Episiotomy/Laceration: Approximated Bladder Status: Voiding Urinary Elimination: Voided - Exam General: Alert, Oriented, Cooperative, No Acute Distress Lungs: Normal Respiratory Effort Cardiovascular: Regular Rate, Regular Rhythm GI/Abdominal Exam: Soft, Non-Tender Extremities: Normal Inspection, Normal Range of Motion, Non-Tender, Normal Capillary Refill Skin: Warm, Dry, Intact Neurological: No New Focal Deficit, Normal Speech, Normal Tone, Strength Equal Bilateral, Sensation Intact Psy/Mental Status: Alert, Normal Affect, Normal Mood - Problem List & Annotations (1) (spontaneous vaginal delivery) SNOMED Code(s): 672059071 Code(s): O80 - ENCOUNTER FOR FULL-TERM UNCOMPLICATED DELIVERY Status: Acute Priority: High Current Visit: Yes - Problem List Review Problem List Initiated/Reviewed/Updated: Yes - Plan Plan:: Admit to inpatient until S/P to term, viable NBF. COVID testing completed 1 day ago, pending; plan to room in with NBF with in-room precautions to include maternal facial mask at all times, frequent handwashing immediately prior to and after handling , and distancing in the room when not performing direct care. 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 See new orders. Dr. De La Paz notified and agreeable with POC. PP Day 1 A: well and bonding well with baby; ambulating, urinating, and tolerating diet well. NO concerns/questions at this time. P: Routine plan of care; anticipate discharge tomorrow (06/11) morning; Dr. De La Paz updated. PP Day 2 A: well and bonding well with baby; reports nipple pain/discomfort. Ambulating, urinating, and tolerating diet. Reports feeling well. NO concerns/questions at this time. P: State COVID swab result pending; should receive back today. Anticipate discharge today. Dr. De La Paz updated.
--- NOTE | 2020-06-11 12:00 | PCM.DCSUM1 ---
Discharge Summary - Hospital Course Free Text/Narrative:: Discharge home. Follow up in the clinic in 6 weeks; sooner, if needed. Diagnosis: Stroke: No Modified Ada Scale: No Symptoms at All Modified Radha Scale Score: 0 - Discharge Data Discharge Date: 06/11/20 Discharge Disposition: Home, Self-Care 01 Condition: Good - Referral to Home Health Primary Care Physician: PCP None - Discharge Diagnosis/Problem(s) (1) (spontaneous vaginal delivery) SNOMED Code(s): 967550999 ICD Code: O80 - ENCOUNTER FOR FULL-TERM UNCOMPLICATED DELIVERY Status: Acute Priority: High Current Visit: Yes - Patient Instructions Diet: Regular Diet as Tolerated, Drink 8-10+ Glasses/Day Activity: As Tolerated, No Strenuous Activities, Rest and Relax Today Driving: May Drive Today Showering/Bathing: May Shower Notify Provider of: Fever, Increased Pain, Swelling and Redness, Drainage, Nausea and/or Vomiting - Discharge Plan *PRESCRIPTION DRUG MONITORING PROGRAM REVIEWED*: Not Applicable *COPY OF PRESCRIPTION DRUG MONITORING REPORT IN PATIENT ELIZABETH: Not Applicable Prescriptions/Med Rec: Ibuprofen [Motrin] 800 mg PO Q6H PRN #90 tablet PRN Reason: Pain Home Medications: Home Meds Pnv,Calcium 72/Iron/Folic Acid [Pnv Plus Multivit Tab] 1 each PO 06/09/20 [History] Ibuprofen [Motrin] 800 mg PO Q6H PRN #90 tablet 06/11/20 [Rx] Oxygen Therapy Mode: Room Air Referrals: [facility] [Outside] Olga Perales CNM [Mid-] - 07/23/20 3:30 pm - Discharge Summary/Plan Comment DC Time >30 min.: Yes - General Info Date of Service: 06/11/20 Admission Dx/Problem (Free Text: Patient Status Order with Admit Dx/Problem 06/09/20 09:06 Patient Status [ADT] Routine 06/09/20 11:17 Patient Status [ADT] Routine Admission Diagnosis/Problem Admission Diagnosis/Problem 06/09/20 13:09 Ryan is a 20 yo at 40.2 weeks gestation (KEILA 06/07/2022) that presents today with C/O moderate contractions every 5-7 min lasting ~1 min since 0030 AM today. B pos, RNI, GBS neg. symptomatic COVID pos 1 day ago, patient tested for COVID in clinic yesterday, results pending. Not advised to utilize rapid test, patient placed on COVID precautions until test results are returned due to close exposure with sympomatic COVID pos case (). Denies LOF, vaginal bleeding; reports adequate movement. Patient has no complaints or concerns at this time, well-appearing, no symptoms. Functional Status: Reports: Pain Controlled, Tolerating Diet, Ambulating, Urinating - Review of Systems General: Reports: No Symptoms HEENT: Reports: No Symptoms Pulmonary: Reports: No Symptoms Cardiovascular: Reports: No Symptoms Gastrointestinal: Reports: No Symptoms Genitourinary: Reports: No Symptoms Musculoskeletal: Reports: No Symptoms Skin: Reports: No Symptoms Neurological: Reports: No Symptoms Psychiatric: Reports: No Symptoms - Patient Data Vitals - Most Recent: Last Vital Signs Temp 98.2 F 06/11/20 08:45 Pulse 80 06/11/20 08:45 Resp 16 06/11/20 08:45 BP 125/72 06/11/20 08:45 Pulse Ox 97 06/11/20 08:45 Weight - Most Recent: 178 lb Med Orders - Current: Current Medications Acetaminophen (Tylenol Extra Strength) 500 mg PO Q4H PRN PRN Reason: Pain Acetaminophen (Tylenol Extra Strength) 1,000 mg PO Q4H PRN PRN Reason: Pain Benzocaine/Menthol (Dermoplast Pain Relief 20%-0.5% [place]) 78 gm TOP ASDIRECTED PRN PRN Reason: Perineal Comfort Measure Last Admin: 06/10/20 00:13 Dose: 1 canister Documented by: Bisacodyl (Dulcolax) 10 mg RECTAL ONETIME PRN PRN Reason: Constipation Docusate Sodium (Colace) 100 mg PO BID PRN PRN Reason: Constipation Emollient Ointment (Lansinoh Hpa) 0 gm TOP ASDIRECTED PRN PRN Reason: Sore Nipples Last Admin: 06/10/20 10:47 Dose: 1 gram Documented by: Ibuprofen (Motrin) 400 mg PO Q4H PRN PRN Reason: Pain Ibuprofen (Motrin) 800 mg PO Q6H PRN PRN Reason: Pain Last Admin: 06/10/20 23:12 Dose: 800 mg Documented by: Oxycodone HCl (Oxycodone) 5 mg PO Q2H PRN PRN Reason: Pain Witch Marlena (Tucks) 1 pad TOP ASDIRECTED PRN PRN Reason: comfort care Last Admin: 06/10/20 00:13 Dose: 1 container Documented by: Discontinued Medications Butorphanol Tartrate (Stadol) 1 mg IVPUSH Q1H PRN PRN Reason: Pain Last Admin: 06/09/20 20:30 Dose: 1 mg Documented by: Carboprost Tromethamine (Hemabate Ds) 250 mcg IM ASDIRECTED PRN PRN Reason: Post Hemorrhage Lactated Ringer's (Ringers, Lactated) 1,000 mls @ 150 mls/hr IV ASDIRECTED CLARE Oxytocin/Sodium Chloride (Oxytocin 30 Unit/500 Ml-Ns) 30 unit in 500 mls @ 999 mls/hr IV TITRATE CLARE Last Admin: 06/09/20 22:32 Dose: 500 mls/hr Documented by: Tranexamic Acid 1,000 mg/ (Sodium Chloride) 110 mls @ 660 mls/hr IV ONETIME PRN PRN Reason: Bleeding Lidocaine HCl (Xylocaine 1%) 50 ml INJECT ONETIME PRN PRN Reason: Laceration repair Lidocaine HCl (Xylocaine 1%) Confirm Administered Dose 50 ml .ROUTE .STK-MED ONE Stop: 06/09/20 22:38 Measles/Mumps/Rubella Vaccine Live (M-M-R Ii Vaccine) 0.5 ml SUBCUT .ONCE ONE Stop: 06/09/20 22:55 Methylergonovine Maleate (Methergine) 0.2 mg IM ASDIRECTED PRN PRN Reason: Post Hemorrhage Misoprostol (Cytotec) 200 mcg PO ONETIME PRN PRN Reason: Post Hemorrhage Nalbuphine HCl (Nubain) 10 mg IVPUSH Q1H PRN PRN Reason: Pain (severe 7-10) Sodium Chloride (Saline Flush) 10 ml FLUSH ASDIRECTED PRN PRN Reason: Keep Vein Open Sodium Chloride (Saline Flush) 2.5 ml FLUSH ASDIRECTED PRN PRN Reason: Keep Vein Open Sodium Chloride (Normal Saline) 10 ml IV ASDIRECTED PRN PRN Reason: IV Use Sterile Water (Sterile Water For Irrigation) 1,000 ml IRR ASDIRECTED PRN PRN Reason: delivery - Exam General: Reports: Alert, Oriented, Cooperative, No Acute Distress Lungs: Reports: Normal Respiratory Effort Cardiovascular: Reports: Regular Rate, Regular Rhythm GI/Abdominal Exam: Soft, Non-Tender (Female) Exam: Deferred Rectal (Female) Exam: Deferred Back Exam: Reports: Normal Inspection, Full Range of Motion Extremities: Normal Inspection, Normal Range of Motion, Non-Tender, Normal Capillary Refill Skin: Reports: Warm, Dry, Intact Neurological: Reports: No New Focal Deficit, Normal Speech, Normal Tone, Strength Equal Bilateral, Sensation Intact Psy/Mental Status: Reports: Alert, Normal Affect, Normal Mood
[2020-06-11] MEDS: Ibuprofen 800 MG Tab PO PRN (14:11)
[2020-06-11] MEDS: Witch Hazel Medicated Pads 40/Jar TOP PRN (22:27)
== END 2020-06-11 23:45 | disposition home or self-care (01) | DRG 560 ==
LOC: MW.OBCHECK 08:41 → MW.OB 08:44 → MW.OBCHECK 11:17 → MW.OB 11:17 → OBSVTOIN 22:30 → MW.OB 06-10 02:45
PROVIDERS: ADMIT Obstetrics & Gynecology; ATTEND Obstetrics & Gynecology
PROC: 10E0XZZ Delivery of Products of Conception, External Approach (ICD-10-PCS; principal; 2020-06-09)
PROC: 10907ZC Drainage of Amniotic Fluid, Therapeutic from Products of Conception, Via Natural or Artificial Opening (ICD-10-PCS; 2020-06-09)
DX: O80 Encounter for full-term uncomplicated delivery (principal); Z37.0 Single live birth; Z3A.40 40 weeks gestation of pregnancy; Z03.818 Encounter for observation for suspected exposure to other biological agents ruled out
CPT/HCPCS: 36415; 59025; 59409; 85014; 85018; 85027; 86592; 86850; 86900; 86901; A9270-GY; J0595; J2590

== ENCOUNTER 2021-09-16 15:10 | Emergency (ER) | payer BC ==
[2021-09-16] MEDS ORDERED: Morphine 4 MG/ML VIAL IVPUSH ONE (15:13)
[2021-09-16] MEDS ORDERED: Ondansetron 4 MG/2 ML SDV IVPUSH ONE (15:14)
--- NOTE | 2021-09-16 15:21 | EDM.PDOC ---
ED HPI GENERAL MEDICAL PROBLEM - General Chief Complaint: Upper Extremity Injury/Pain Stated Complaint: EMS ARRIVAL Time Seen by Provider: 09/16/21 15:11 Source of Information: Reports: Patient, EMS History Limitations: Reports: No Limitations - History of Present Illness INITIAL COMMENTS - FREE TEXT/NARRATIVE: 21-year-old female no past medical history presents for right wrist injury. Patient was standing on a barstool when she lost her balance and fell on her right outstretched hand. She notes over deformity to the right wrist. EMS was called and she was given 50 mg of fentanyl in route with minimal relief of pain. Right Wrist Pain Score (Numeric/FACES): 10 - Related Data Allergies Allergy/AdvReac Type Severity Reaction Status Date / Time No Known Allergies Allergy Verified 09/16/21 15:16 Home Meds: Home Meds Acetaminophen/oxyCODONE [Percocet 325-5 MG] 1 each PO Q4H PRN #18 tab 09/16/21 [Rx] Ibuprofen [Motrin] 600 mg PO Q6H PRN #30 tab 09/16/21 [Rx] Past Medical History - Past Health History Medical/Surgical History: Denies Medical/Surgical History HEENT History: Reports: None Cardiovascular History: Reports: None Respiratory History: Reports: None Gastrointestinal History: Reports: None Genitourinary History: Reports: None [employer]IALS History: Reports: , Spontaneous (Twins (2018)) Musculoskeletal History: Reports: None Neurological History: Reports: None Psychiatric History: Reports: None Endocrine/Metabolic History: Reports: None Hematologic History: Reports: None Immunologic History: Reports: None Oncologic (Cancer) History: Reports: None Dermatologic History: Reports: None - Infectious Disease History Infectious Disease History: Reports: None - Past Surgical History Head Surgeries/Procedures: Reports: None Cardiovascular Surgical History: Reports: None Respiratory Surgical History: Reports: None GI Surgical History: Reports: None Female Surgical History: Reports: None Endocrine Surgical History: Reports: None Neurological Surgical History: Reports: None Musculoskeletal Surgical History: Reports: None Dermatological Surgical History: Reports: None Social & Family History - Family History Family Medical History: No Pertinent Family History - Caffeine Use Caffeine Use: Reports: None Review of Systems - Review of Systems Review Of Systems: Comprehensive ROS is negative, except as noted in HPI. ED EXAM, GENERAL - Physical Exam Exam: See Below Exam Limited By: No Limitations General Appearance: Alert, WD/WN, No Apparent Distress Ears: Hearing Grossly Normal Throat/Mouth: Normal Voice, No Airway Compromise Head: Atraumatic, Normocephalic Respiratory/Chest: No Respiratory Distress, Lungs Clear, Normal Breath Sounds, No Accessory Muscle Use Cardiovascular: Normal Peripheral Pulses, Regular Rate, Rhythm Extremities: Other (Overt deformity to right wrist, palpable radial pulse, intact sensation, able to move all right upper extremity digits) Neurological: Alert, Normal Cognition Psychiatric: Normal Affect, Normal Mood Skin Exam: Warm, Dry, Intact, Normal Color ED PROCEDURAL SEDATION - Pre Procedure Indications: fracture reduction Preparations: procedure explained, continuous pulse oximeter, continuous pvc monitor, capnography - Physical Exam Airway: normal anatomy Cardiovascular: normal heart sounds Respiratory: normal breath sounds Neurological: alert, responsive, NAD Mallampati Classification: 1 (soft palate, anterior/posterior tonsillar pillars, uvula visible) - Procedure Sedation Procedural Sedation Start Date: 09/16/21 Procedural Sedation Start Time: 16:30 Sedation: propofol, fentanyl ASA Classification: 1 (Normal healthy patient) - Intra Procedure Condition during procedure: moderately sedated Complications: none Reversal: none - Post Procedure Procedural Sedation End Date: 09/16/21 Procedural Sedation End Time: 16:47 Condition after procedure: alert, NAD, responds to verbal stimuli - Discharge Condition Patient returned to pre-procedure baseline: Yes Alert prior to discharge: Yes Ambulatory with assistance: Yes Vital signs normal: Yes Time spent with sedated patient: 20 min Course - Vital Signs Last Recorded V/S: Last Vital Signs Temp 98.3 F 09/16/21 15:17 Pulse 73 09/16/21 15:17 Resp 18 09/16/21 15:17 BP 120/69 09/16/21 15:17 Pulse Ox 99 09/16/21 15:17 - Orders/Labs/Meds Orders: Active Orders 24 hr Category Date Time Status Wrist 2V Rt [CR] Stat Exams 09/16/21 16:46 Ordered Meds: Medications Discontinued Medications Generic Name Dose Route Start Last Admin Trade Name Freq PRN Reason Stop Dose Admin Fentanyl Confirm 09/16/21 16:40 Fentanyl 100 Mcg/2 Ml Sdv Administered 09/16/21 16:41 Dose 100 mcg .ROUTE .STK-MED ONE Morphine Sulfate 4 mg 09/16/21 15:13 09/16/21 15:28 Morphine 4 Mg/Ml Vial IVPUSH 09/16/21 15:14 4 mg ONETIME ONE Administration Ondansetron HCl 4 mg 09/16/21 15:14 09/16/21 15:28 Ondansetron 4 Mg/2 Ml Sdv IVPUSH 09/16/21 15:15 4 mg ONETIME ONE Administration Propofol 70 mg 09/16/21 15:39 Propofol 200 Mg/20 Ml Sdv IVPUSH 09/16/21 15:40 ONETIME ONE - Re-Assessments/Exams Free Text/Narrative Re-Assessment/Exam: 09/16/21 15:20 We will give morphine for pain. We will get x-ray imaging of the wrist to further characterize the fracture. Anticipate need for conscious sedation and reduction. 09/16/21 16:48 Patient was reduced; see procedure note. Departure - Departure Time of Disposition: 16:48 Disposition: Home, Self-Care 01 Condition: Good Clinical Impression: Wrist fracture, right Qualifiers: Encounter type: initial encounter Fracture type: closed Qualified Code(s): S62.101A - Fracture of unspecified carpal bone, right wrist, initial encounter for closed fracture - Discharge Information Prescriptions: Ibuprofen [Motrin] 600 mg PO Q6H PRN #30 tab PRN Reason: Pain Acetaminophen/oxyCODONE [Percocet 325-5 MG] 1 each PO Q4H PRN #18 tab PRN Reason: Pain Instructions: Wrist Fracture Treated With Immobilization Referrals: Richa Faulkner PA [Primary Care Provider] - Forms: ED Department Discharge Additional Instructions: Please follow up with orthopedics; information provided below. Prescription pain medicine was sent to ? pharmacy. The following information is given to patients seen in the emergency department who are being discharged to home. This information is to outline your options for follow-up care. We provide all patients seen in our emergency department with a follow-up referral. The need for follow-up, as well as the timing and circumstances, are variable depending upon the specifics of your emergency department visit. If you don't have a primary care physician on staff, we will provide you with a referral. We always advise you to contact your personal physician following an emergency department visit to inform them of the circumstance of the visit and f or follow-up with them and/or the need for any referrals to a consulting specialist. The emergency department will also refer you to a specialist when appropriate. This referral assures that you have the opportunity for follow-up care with a specialist. All of these measure are taken in an effort to provide you with optimal care, which includes your follow-up. Under all circumstances we always encourage you to contact your private physician who remains a resource for coordinating your care. When calling for follow-up care, please make the office aware that this follow-up is from your recent emergency room visit. If for any reason you are refused follow-up, please contact the [facility] Emergency Department at and asked to speak to the emergency department charge nurse. Please follow up with your primary care physician. If you do not have a primary care physician, see below: [facility] [address] [place] [address] [id number] [facility] [address] [place] [id number] [facility] [address] [place] [id number] Sepsis Event Note (ED) - Focused Exam Vital Signs: Vital Signs Temp Pulse Resp BP Pulse Ox 09/16/21 15:17 98.3 F 73 18 120/69 99 - My Orders Last 24 Hours: My Active Orders 09/16/21 16:46 Wrist 2V Rt [CR] Stat - Assessment/Plan Last 24 Hours: My Active Orders 09/16/21 16:46 Wrist 2V Rt [CR] Stat ED JOINT REDUCTION/SPLINTING - Joint Reduction Right Wrist Sedation: Conscious Sedation Pre-procedure NV status: Normal Post-procedure NV status: Normal Technique: Traction/Counter Traction Number of Attempts: 1 Post-Reduction Imaging: Acceptably Reduced Complications: No
[2021-09-16] MEDS ORDERED: Propofol 200 MG/20 ML SDV IVPUSH ONE ×2 (15:39→17:24)
--- NOTE | 2021-09-16 15:54 | CR ---
Clinical INDICATION: Pain. FINDINGS: There is a fracture of the distal end of the radius with approximately 35 degrees of dorsal angulation of the distal right articular surface. There is also a fracture through the base of the ulnar styloid process. The carpal bones appear intact. No other bone or joint abnormality is identified. Dictated by Augustin Limon MD @ 09/16/2021 3:52:12 PM (Electronically Signed)
[2021-09-16] MEDS ORDERED: fentaNYL 100 MCG/2 ML SDV ONE (16:40)
[2021-09-16] MEDS ORDERED: fentaNYL 50 MCG/ML SDV IVPUSH ONE (17:25)
--- NOTE | 2021-09-16 17:37 | CR ---
INDICATION: Post reduction COMPARISON: Two-view right wrist performed at 3:23 p.m. TECHNIQUE: AP and cross table lateral view right wrist performed 4:55 p.m. FINDINGS: There has been a close reduction of the Colles type fracture within the distal radius and ulna. There has been resolution of the angulation and dorsal impaction the distal radial fracture. The ulnar styloid process fracture remains nondisplaced. Carpal bones appear intact. A fiberglass cast has been applied. IMPRESSION: Anatomic reduction of the distal radial fracture following closed reduction. Dictated by Jared Hernandez MD @ 09/16/2021 5:35:51 PM (Electronically Signed)
== END 2021-09-16 17:25 | disposition home or self-care (01) ==
LOC: MW.ED 15:10
DX: S62.101A Fracture of unspecified carpal bone, right wrist, initial encounter for closed fracture (principal); W18.39XA Other fall on same level, initial encounter
CPT/HCPCS: 25605; 73100; 96374; 96375; 99283; J2270; J2405; J2704; J3010

== ENCOUNTER 2022-07-16 12:57 | Emergency (ER) | payer BC ==
[2022-07-16] MEDS ORDERED: Ondansetron 4 MG/2 ML SDV IVPUSH ONE (13:45)
[2022-07-16] MEDS ORDERED: Sodium Chloride 0.9% 1,000 ML IV ONE (13:45)
[2022-07-16] MEDS ORDERED: Sodium Chloride 0.9% 2.5 ML Syringe FLUSH PRN (13:45)
[2022-07-16] MEDS ORDERED: Sodium Chloride 0.9% 10 ML Syringe FLUSH PRN (13:45)
[2022-07-16 14:42] LABS: CARBON DIOXIDE,CO2 27.5 mmol/L (21.0-32.0)
== END 2022-07-16 16:24 | disposition home or self-care (01) ==
LOC: MW.ED 12:57
DX: R11.2 Nausea with vomiting, unspecified (principal)
CPT/HCPCS: 36415; 80053; 81001; 81025; 83690; 85025; 96361; 96374; 99284; J2405; J3490; J7030; 99283